=== PATIENT | male | born 1995 | race American Indian/Alaskan Native ===

== ENCOUNTER 2016-09-10 22:31 | Emergency (ER) | payer OTHER ==
[2016-09-10] MEDS ORDERED: Lidocaine 1% 20 ML MDV ONE (22:51)
[2016-09-10] MEDS ORDERED: cefTRIAXone 1 GM Vial IM ONE (22:54)
--- NOTE | 2016-09-10 23:00 | EDM.PDOC ---
ED HPI GENERAL MEDICAL PROBLEM - General Chief Complaint: Skin Complaint Stated Complaint: skin problem Time Seen by Provider: 09/10/16 22:50 Source of Information: Reports: Patient History Limitations: Reports: No Limitations - History of Present Illness INITIAL COMMENTS - FREE TEXT/NARRATIVE: Several days ago he noted a boil starting on the right lateral hip and he tried to squeeze it earlier but it would not drain. it is red, warm firm and tender to touch. No drainage from it. Distal to that he has enlarged lymph nodes in the groin that are very tender to touch and firm. 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 [No Known Home Meds] 12/09/13 [History] Past Medical History - Past Health History Medical/Surgical History: Denies Medical/Surgical History Musculoskeletal History: Reports: Fracture Psychiatric History: Reports: Anxiety, Bipolar - Infectious Disease History Infectious Disease History: Reports: Hepatitis C - Past Surgical History Musculoskeletal Surgical History: Reports: None Other Musculoskeletal Surgeries/Procedures:: hand fracture with surgical repair Social & Family History - Family History Family Medical History: Noncontributory - Tobacco Use Smoking Status *Q: Current Every Day Smoker Years of Tobacco use: 3 Packs/Tins Daily: 0.3 Used Tobacco, but Quit: No Second Hand Smoke Exposure: No - Caffeine Use Caffeine Use: Reports: Coffee, Energy Drinks, Soda, Tea - Alcohol Use Days Per Week of Alcohol Use: 4 Number of Drinks Per Day: 8 Total Drinks Per Week: 32 - Recreational Drug Use Recreational Drug Use: No Drug Use in Last 12 Months: Yes Recreational Drug Type: Reports: Ativan, Vicodin, Xanax Recreational Drug Use Frequency: Binges ED ROS GENERAL - Review of Systems Review Of Systems: See Below Constitutional: Reports: No Symptoms Respiratory: Reports: No Symptoms Cardiovascular: Reports: No Symptoms GI/Abdominal: Reports: No Symptoms Musculoskeletal: Reports: No Symptoms Skin: Reports: Wound (right lateral hip), Lumps (right groin) ED EXAM, SKIN/RASH Exam: See Below Exam Limited By: No Limitations General Appearance: Alert, Mild Distress Respiratory/Chest: No Respiratory Distress, Lungs Clear Cardiovascular: Regular Rate, Rhythm GI/Abdominal: Soft, Non-Tender, No Organomegaly Extremities: Other (right lateral hip area does have some swelling noted that is warm and firm and tender to touch. Not able to express any discharge. In the right groin he does have several enlarged lymph nodes that are firm and tender to touch.) Neurological: Alert, Oriented Skin: Warm, Dry Location, Skin: Lower Extremity, Right Associated features: Warmth, Tenderness, Induration Course - Vital Signs Last Recorded V/S: Last Vital Signs Temp 98.9 F 09/10/16 22:32 Pulse 96 09/10/16 22:32 Resp 16 09/10/16 22:32 BP 140/89 09/10/16 22:32 Pulse Ox 98 09/10/16 22:32 - Orders/Labs/Meds Orders: Active Orders 24 hr Category Date Time Status cefTRIAXone [Rocephin] Med 09/10/16 22:54 Once 1 gm IM ONETIME ONE Departure - Departure Time of Disposition: 22:54 Disposition: Home, Self-Care 01 Condition: good Clinical Impression: Boil, hip - Discharge Information Forms: ED Department Discharge Additional Instructions: Soak in hot bath tub or apply warm moist compress to the area for about 20 minutes 2-3 times a day until it opens and drains. Try not to squeeze or poke into it as it may make it worse Advil as needed for discomfort- May alternate with tylenol if needed cephalexin 500 mg 3 times a day for 10 days. Start tomorrow. - Problem List & Annotations (1) Boil, hip SNOMED Code(s): 42161932 Code(s): L02.439 - CARBUNCLE OF LIMB, UNSPECIFIED Status: Acute Priority : High - Problem List Review Problem List Initiated/Reviewed/Updated: Yes - My Orders Last 24 Hours: My Active Orders 09/10/16 22:54 cefTRIAXone [Rocephin] 1 gm IM ONETIME ONE - Assessment/Plan Last 24 Hours: My Active Orders 09/10/16 22:54 cefTRIAXone [Rocephin] 1 gm IM ONETIME ONE
[2016-09-10 23:07] VITALS: BP 144/73
== END 2016-09-10 23:20 | disposition home or self-care (01) ==
LOC: CC.ED 22:31
DX: L02.425 Furuncle of right lower limb (principal); F31.9 Bipolar disorder, unspecified; Z98.890 Other specified postprocedural states; F17.210 Nicotine dependence, cigarettes, uncomplicated
CPT/HCPCS: 96372; 99282; J0696